=== PATIENT | female | born 1940 | race Caucasian/White ===

== ENCOUNTER 2023-11-30 14:26 | Emergency (ER) | payer OTHER ==
[~2023-11-30] VITALS: Ht 152.4 cm; Wt 81.6 kg
[2023-11-30 14:40] VITALS: BP_SYST 151; PULSE 58; RESP 18; TEMP 97.8; O2SAT 94
[2023-11-30 15:50] LABS: BASOPHILS % (AUTO) 0.4 % (0.0-2.0); EOSINOPHILS # (AUTO) 0.2 K/uL (0.0-0.4); EOSINOPHILS % (AUTO) 3.9 % (0.0-4.0); HEMATOCRIT 32.3 % (36-48); HEMOGLOBIN 11.1 g/dL (12.0-16.0); LYMPHOCYTES # (AUTO) 2.1 K/uL (1.0-5.5); LYMPHOCYTES % (AUTO) 42.4 % (20.5-51.5); MEAN CORPUSCULAR HEMOGLOBIN 35 pg (27-31); MEAN CORPUSCULAR HGB CONC 34 % (32-36); MEAN CORPUSCULAR VOLUME 103 fL (79.0-98.0); MONOCYTES # (AUTO) 0.4 K/uL (0.0-1.0); MONOCYTES % (AUTO) 8.1 % (1.7-9.3); NEUTROPHILS # (AUTO) 2.3 K/uL (1.8-7.7); NEUTROPHILS % (AUTO) 45.2 % (40.0-70.0); PLATELET COUNT (AUTO) 208 K/uL (130-430); RED BLOOD CELL COUNT(AUTO) 3.15 MIL/uL (4.2-6.2); RED CELL DISTRIBUTION WIDTH 17.2 % (9.0-15.0)
[2023-11-30 16:03] LABS: ANION GAP 7 (5-15); CALCIUM 9.9 mg/dL (8.4-11.0); CARBON DIOXIDE 25 mmol/L (23-29); CHLORIDE 109 mmol/L (98-107); CREATININE 1.33 mg/dL (0.55-1.30); GLUCOSE 151 mg/dL (74-106); POTASSIUM 3.7 mmol/L (3.5-5.1); SODIUM SERUM 141 mmol/L (136-145); UREA NITROGEN, BLOOD 14 mg/dL (8-21)
[2023-11-30 16:07] LABS: ALANINE AMINOTRANSFERASE 17 U/L (12-78); ALBUMIN 2.5 g/dL (3.4-4.8); ASPARTATE AMINOTRANSFERASE 41 U/L (10-37); BILIRUBIN,DIRECT 0.4 mg/dL (0.0-0.3); LIPASE 26 U/L (16-77); TOTAL BILIRUBIN 1.1 mg/dL (0.0-1.0); TOTAL PROTEIN, SERUM 8.3 g/dL (6.4-8.3)
[2023-11-30 16:35] LABS: BILIRUBIN,URINE 1+ (NEGATIVE); BLOOD, URINE NEGATIVE (NEGATIVE); CLARITY/URINE SL CLOUDY (CLEAR); COLOR,URINE YELLOW (YELLOW); GLUCOSE,URINE NEGATIVE (NEGATIVE); KETONES,URINE NEGATIVE (NEGATIVE); LEUKOCYTE ESTERASE ,URINE TRACE (NEGATIVE); NITRITE, URINE NEGATIVE (NEGATIVE); PROTEIN URINE 1+ (NEGATIVE)
[2023-11-30] MEDS: KETOROLAC TROMETHAMINE 15 MG VIAL IVP ONE (16:52)
[2023-11-30 17:04] LABS: RBC,URINE 0-3 /HPF (0-3)
[2023-11-30 17:05] LABS: BACTERIA,URINE MODERATE /HPF (None Seen)
[2023-11-30 17:06] LABS: URINE AMORPHOUS URATE 2+ /HPF (None Seen)
[2023-11-30] MEDS ORDERED: NITR-85 PO (17:29)
[2023-11-30] MEDS ORDERED: ACET-2634 PO (17:29)
[2023-11-30] MEDS ORDERED: cefTRIAXone 1 GM in D5W 50 ML IV ONE (17:30)
[2023-11-30] MEDS ORDERED: hydrALAZINE HCL 20 MG/ML VIAL ONE (17:41)
[2023-11-30 19:06] VITALS: BP_SYST 151; PULSE 103; RESP 24; TEMP 97.8; O2SAT 94
== END 2023-11-30 19:06 | disposition home or self-care (01) ==
LOC: SED 14:26
DX: N39.0 Urinary tract infection, site not specified (principal); R11.2 Nausea with vomiting, unspecified; I16.0 Hypertensive urgency; R10.9 Unspecified abdominal pain; Z91.148 Patient's other noncompliance with medication regimen for other reason; Z79.899 Other long term (current) drug therapy
CPT/HCPCS: 99284; 74176; 96374; 80076; 80048; 81001; 83690; 85025; 87086; 36415; 93005; 81000; 81015; J0360; J1885